=== PATIENT | female | born 1965 | race Caucasian/White ===

== ENCOUNTER → 2022-05-11 | Outpatient (CLI) | payer BC, SELFPAY | END | disposition home or self-care (01) | LOC: LAB 11:14 | PROVIDERS: PCP Family Medicine; Referring Provider Obstetrics & Gynecology; Visit Provider Obstetrics & Gynecology | DX: Z01.818 Encounter for other preprocedural examination (principal) | CPT/HCPCS: 36415; 80053; 85027; 86850; 86900; 86901 ==

== ENCOUNTER 2022-05-16 08:07 | Day surgery (SDC) | payer BC, SELFPAY ==
[2022-05-11 12:04] LABS: Hematocrit 42.1 % (37-47); Hemoglobin 13.7 g/dL (12.0-15.0); Mean Corp Hgb Conc 32.5 g/dL (32-36); Mean Corpuscular Hgb 29.9 pg (27.0-32.0); Mean Corpuscular Volume 91.9 fL (81-99); Platelet Count 142 K/mm3 (150-450); RBC Distribution Width CV 12.3 % (11.6-14.6); RBC Distribution Width SD 41.6 fl (35.1-43.9); Red Blood Count 4.58 M/mm3 (4.2-5.4); White Blood Count 4.1 K/mm3 (4.4-11.0)
[2022-05-11 12:33] LABS: ALB/GLOB Ratio 1.2 RATIO (0.9-2.4); AST(SGOT) 14 U/L (15-37); Alanine Aminotransfer ALT/SGPT 20 U/L (13-56); Albumin, Serum 3.6 g/dL (3.2-5.0); Alkaline Phosphatase 48 U/L (45-117); Anion Gap 6 (5-15); BUN 20 mg/dL (7-18); Calcium,Total 9.1 mg/dL (8.5-10.1); Chloride 107 mmol/L (98-107); EST Glomerular Filtration Rate 78 mL/min (>60); Est Glom Filt Rate - Afr Amer 95 mL/min (>60); Globulin 3.1 g/dL (2.2-4.2); Glucose 90 mg/dL (74-106); Potassium 4.1 mmol/L (3.5-5.1); Protein, Total 6.7 g/dL (6.4-8.2); Sodium Level 142 mmol/L (136-145)
[2022-05-16] VITALS (7 sets, daily range): BP systolic 100–139; BP diastolic 59–75; PULSE 53–63; RESP 16–18; TEMP 36.2–36.9; O2SAT 99–100; BMI 21.1
[2022-05-16] MEDS: Lactated Ringers 1,000 ML 15 ML IV (08:41)
--- NOTE | 2022-05-16 09:37 | PCM.HP.STD ---
HPI - General General Date of Admission: 05/16/22 Date of Service: 05/16/22 Chief Complaint: Thickened endometrial lining HPI Narrative BRIANNA STEWARD, is a 57 F who presents for surgery. [facility] Medical History (Updated 05/16/22 @ 09:[address] Donna Garcia MD) Alcohol use Cancer Gastric reflux Non-smoker Post-menopausal Seasonal allergies Thickened endometrium Home Medications cetirizine 10 mg capsule (Zyrtec) 10 mg PO DAILY PRN PRN seasonal allergies 05/10/22 [History Last Taken 05/15/22] fluticasone propionate 50 mcg/actuation nasal spray,suspension 1 spray intranasal BID PRN PRN seasonal allergies 05/10/22 [History Last Taken 05/15/22] multivit with vpeqibif-mgzx-XA-lutein 8 mg iron-400 mcg-300 mcg tablet (Multivitamin Women 50 Plus) 1 tab PO QODAY 05/10/22 [History Last Taken 05/15/22] trazodone 50 mg tablet 50 mg PO QHS sleep 05/10/22 [History Last Taken 05/15/22] Allergy/AdvReac Type Severity Reaction Status Date / Time No Known Allergies Allergy Verified 05/16/22 08:37 Surgical History (Updated 05/10/22 @ 15:39 by Ceci Figueredo) History of History of colonoscopy History of D&C Social History Smoking Status: Never smoker Vital Signs Vital Signs Vital Signs: 05/16/22 08:42 05/16/22 08:42 Temperature 98.5 F Temperature Source Temporal Pulse Rate 60 Respiratory Rate 18 Respiratory Pattern Normal Blood Pressure 115/60 Blood Pressure Mean 78 Blood Pressure Source Monitor Blood Pressure Position Semi-Fowlers Blood Pressure Location Left Arm Pulse Ox 99 Oxygen Delivery Method Room Air Weight Weight: 135 lb Body Mass Index (BMI) 21.1 Results Lab / Micro Data Result Diagrams: 05/11/22 11:50 05/11/22 11:50 Assessment & Plan Assessment/Plan (1) Thickened endometrium: PLAN: Discussed R/B/A of treatment options. Patient wishes to proceed with hysteroscopy with D&C. Possible polypectomy. Informed consent signed in office and all questions answered.
--- NOTE | 2022-05-16 09:45 | EMB_PTH ---
PATIENT: BRIANNA STEWARD LOC: [facility] [place] U#:[id number] AGE/SX: 57/F ROOM: RE05/16/[address]: Dr. Donna Garcia MD : 1965 BED: DIS: 05/16/2022 SPEC #: [id number] RECD: 05/16/22 10:40 STATUS: MALIKA HAMLIN #: [id number] MARILYN: 05/16/22 09:[address]: Donna Garcia DEPT: SURGICAL PATHOLOGY RECD BY: Jona Liriano ENTERED: 05/16/22 11:11 SP TYPE: ENDOM BX/C ESTEFANY DR: Dr. Tanmay Schwartz MD Tissues: Endometrium, NOS Procedures: Surgery Specimen Level IV HEADER OPERATION: Hysteroscopy, D & C, possible polypectomy, Symphion PRE-OP DIAGNOSIS: Thickened endometrium TISSUE SUBMITTED: Endometrial curettings MICROSCOPIC DIAGNOSIS Endometrium, curettings: Scant strips of benign superficial mucosa. AM:shadi 05/17/2022 MICROSCOPIC DESCRIPTION Slides are reviewed. GROSS DESCRIPTION Received in fixative is one container labeled with the patient's name and designated endometrial curettings. The specimen consists of multiple fragments of hemorrhagic soft tissue that in aggregate measure 2.5 x 2.5 x 0.3 cm. The specimen is totally submitted in one cassette. / DELBERT:shadi 05/16/2022 TC:5 CPT: 44211
[2022-05-16] MEDS: Lidocaine 1% (20 ml mdv) 20 ML Vial (10:02)
[2022-05-16] MEDS: Bacitracin 500 UNITS/GM PACKET (10:14)
--- NOTE | 2022-05-16 10:20 | PCM.DC ---
Discharge Instructions Diet Discharge Diet: No restrictions Activity Discharge Activity: May Drive (after 24 hours) and May Shower May resume sexual activity in: 2 weeks Weight Bearing Status: Weight bearing as tolerated Dressing / Incision Call your doctor if you observe: Fever of 101 or Higher, Coldness, Increased Pain, Change in Color, Inability to urinate, Using more than 1 pad per hour, Shortness of breath, Dizziness, Fainting spells, Chest pain, Increased palpitations (irregular heartbeat), Calf discomfort and Uncontrolled pain Follow Up Care Please Follow Up With: Donna Garcia When: 2 weeks - virtual visit OK Test Results: Test results from this visit will be discussed in further detail at your follow-up appointment, if applicable. Discharge Plan Admission Primary Reason for Your Visit: Hysteroscopy with D&C for thickened endometrial lining Attending Provider: Donna Garcia Primary Care Provider: Tanmay Schwartz Discharge Orders/Prescriptions Prescriptions: No Action trazodone 50 mg tablet 50 mg PO QHS Label Comments: take 1 tablet by mouth at bedtime fluticasone propionate [Flonase] 50 mcg/actuation [place],Suspension 1 spray INTRANASAL BID PRN PRN (Reason: seasonal allergies) Rx Instructions: administer into each nostril Zyrtec 10 mg Capsule 10 mg PO DAILY PRN PRN (Reason: seasonal allergies) Multivitamin Women 50 Plus 8 mg iron-400 mcg-300 mcg Tablet 1 tab PO QODAY Referrals / Follow Up: Tanmay Schwartz MD [Primary Care Provider] - Disposition Disposition (needs filled in before D/C Order can be placed): Home, Self Care
--- NOTE | 2022-05-16 10:22 | OP.PCM_ITS ---
Report of Operation Date of Procedure: 05/16/22 Pre-Operative Diagnosis: Thickened endometrium Post-Operative Diagnosis: Same Surgery/Procedure Performed:: Hysteroscopy with dilation and curettage Description of Surgical Findings:: Normal uterine cavity with bilateral ostia visualized. Minimal amount of endometrial tissue seen. Surgeon: Donna Garcia roll up machine operator: Nadia Cortes Type of Anesthesia: Local and MAC Specimen's removed: Endometrial curettings Drains: straight cath for 200ml prior to procedure Estimated Blood Loss (mL): 5ml Fluids Replaced: 900ml Description of Procedure: Patient taken to OR where MAC anesthesia was placed & found to be adequate. She was placed in the dorsal lithotomy position, prepped & draped in the normal sterile fashion. Cervix was grasped with a tenaculum. Paracervical block g iven. Cervix was gently dilated. Hysteroscope was gently introduced & uterine cavity was well visualized. Hysteroscope removed. Gentle sharp curettage (#1 ) was performed for return of endometrial tissue. At end of procedure all instruments removed from the vaginal cavity and a vaginal sweep was performed. Patient tolerated the procedure well. Hysteroscope fluid deficit = 100ml Procedure Start Time: 09:54 Procedure Stop Time: 10:15 Complications None Admit VTE Documentation VTE Present on Admission: No VTE Mechan Device Prophylaxis: SCD's VTE Pharm Prophylaxis ordered?: No Reason prophylaxis not ordered:: Procedure Not Indicated
== END 2022-05-16 12:27 | disposition home or self-care (01) ==
LOC: SDC 08:11 → AC 08:11
PROVIDERS: PCP Family Medicine; Referring Provider Obstetrics & Gynecology; Visit Provider Obstetrics & Gynecology
PROC: 0UB98ZZ Excision of Uterus, Via Natural or Artificial Opening Endoscopic (ICD-10-PCS; CPT 58558; principal; 2022-05-16 09:30)
DX: R93.89 Abnormal findings on diagnostic imaging of other specified body structures (principal); K21.9 Gastro-esophageal reflux disease without esophagitis; Z72.89 Other problems related to lifestyle; Z79.891 Long term (current) use of opiate analgesic; Z98.890 Other specified postprocedural states; Z79.899 Other long term (current) drug therapy; Z85.828 Personal history of other malignant neoplasm of skin
CPT/HCPCS: 58558; 00952; 36415; 80053; 85027; 86850; 86900; 86901; 88305; J7120; J2405